=== PATIENT | female | born 1990 | race Caucasian/White ===

== ENCOUNTER 2025-09-18 02:28 | Emergency (ER) | payer OTHER ==
[2025-09-18 02:48] VITALS: TEMP 97.6; O2SAT 100
[2025-09-18] MEDS ORDERED: Ocuflox OPHTHALMIC 5 ML OP ONE (03:12)
--- NOTE | 2025-09-18 03:21 | ERPHSYRPT ---
- History of Present Illness Time Seen by Provider: 09/18/25 03:15 Source: patient Exam Limitations: no limitations Patient Subjective Stated Complaint: "I went to the clinic in [place] yesterday evening but then had to go to work, I work over in [place] and they sent some ear drops into the pharmacy for me for a double ear infection. I wasn't able to sisal picker my prescription yet but when I got home from work, I laid down and heard a loud pop and now I can't hear anything". Triage Nursing Assessment: Pt presents to ER with complaints of difficulty hearing out of right ear. Was diagnosed with bilateral ear infection on 09/17/25 at [facility] and prescribed some Arnold/Doxy drops. Pt is concerned due to laying down and hearing a loud pop and now is unable to hear out of her right ear. Right ear appears severely inflamed and swollen on external ear canal. There is some yellow/brown/transparent drainage coming from right ear. Pt rates pain 8/10 scale. Pt's left ear appears slightly red but no obvious swelling noted. Pt denies injury. Respirations are easy and unlabored. Skin is pink, warm, and dry. Denies any further complaints at this time. Physician History: 34-year-old female BMI of 56, history of hypertension presents to our ED for evaluation of right ear pain. Patient states she went to a clinic in [place] yesterday. Patient was diagnosed with otitis externa. Patient was prescribed eardrops for double ear infection. Patient did not sisal picker her eardrops. Patient states she heard a loud "pop" in her right ear. Hearing is muffled. Patient became concerned for a ruptured eardrum and came to our ED. No trauma. No fever. Patient rates her pain 8 out of 10. However patient declined pain medication from our ED. Patient has Sneads at home which she uses for her chronic back pain. She denies dizziness. Patient voices no other complaints or concerns at this time. Portions of this note were created with voice recognition technology. There may be grammatical, spelling, punctuation or sound alike errors Timing/Duration: yesterday Severity: moderate Modifying Factors: Improves With: nothing Associated Symptoms: other (Decreased hearing involve the ear) Allergies/Adverse Reactions: Penicillins Allergy (Intermediate, Verified 09/18/25 02:38) Hives Home Medications: Allopurinol 100 mg [Zyloprim 100 mg] 100 mg PO DAILY 09/18/25 [History] Bimekizumab-Bkzx [Bimzelx Autoinjector] 1 dose SQ Q14D 09/18/25 [History] Doxycycline Hyclate 100 mg [Vibramycin 100 MG] 100 mg PO DAILY 09/18/25 [History] Hydrochlorothiazide 25 mg [hydroDIURIL 25 MG] 12.5 mg PO DAILY 09/18/25 [History] Hydrocodone/Acetaminophen [Hydrocodone-Acetamin 5-325 mg] 1 each PO BID PRN 09/18/25 [History] Lisdexamfetamine Dimesylate [Vyvanse] 50 mg PO DAILY 09/18/25 [History] Losartan Potassium 50 mg [Cozaar 50 MG] 100 mg PO DAILY 09/18/25 [History] Metoprolol Tartrate 50 mg [Lopressor 50 MG] 100 mg PO DAILY 09/18/25 [History] Hx Influenza Vaccination/Date Given: Yes Hx Pneumococcal Vaccination/Date Given: No Travel Risk - International Travel Have you traveled outside of the country in past 3 weeks: No - Emerging Infectious Disease Are you exhibiting symptoms associated with any current EIDs: No - Review of Systems All Other Systems: Reviewed and Negative - Past Medical History Pertinent Past Medical History: Yes Neurological History: No Pertinent History ENT History: No Pertinent History Cardiac History: Hypertension Respiratory History: No Pertinent History Endocrine Medical History: No Pertinent History Musculoskeletal History: No Pertinent History GI Medical History: No Pertinent History History: No Pertinent History Psycho-Social History: No Pertinent History Female Reproductive Disorders: No Pertinent History Other Medical History: H.S., PCOS, ELEVATED URIC ACID, EAR INFECTION, HERNIATED DISKS - Past Surgical History Past Surgical History: Yes Neuro Surgical History: No Pertinent History Cardiac: No Pertinent History Respiratory: No Pertinent History Gastrointestinal: No Pertinent History Genitourinary: No Pertinent History Musculoskeletal: No Pertinent History Female Surgical History: Tubal Ligation - Female History Hx Last Menstrual Period: N/A Hx Now: No - Social History Smoking Status: Never smoker Exposure to second hand smoke: No Drug Use: none - Social Determinants of Health Will the patient participate in the screening: Yes Do you worry about a steady place to live?: No Do you have any problems with any of the following?: No known problems In the past 12 months,have you had to go without utilities?: No Transportation Issues: No Has anyone in your support network made you feel unsafe?: No Have you or anyone in your house had to go w/o enough food: No - Nursing Vital Signs Nursing Vital Signs: Initial Vital Signs Pulse Rate 78 09/18/25 02:38 Respiratory Rate 18 09/18/25 02:38 Blood Pressure 169/99 09/18/25 02:38 O2 Sat by Pulse Oximetry 98 09/18/25 02:38 Pain Scale Pain Intensity 8 - Physical Exam General Appearance: no apparent distress, alert Eye Exam: PERRL/EOMI, eyes nml inspection Ears, Nose, Throat Exam: normal ENT inspection, TMs normal, pharynx normal, moist mucous membranes, other (Right ear otitis externa. There is swelling of the external canal and the eardrum is barely visible. No bleeding. No mastoid tenderness.) Neck Exam: normal inspection, full range of motion Respiratory Exam: normal breath sounds, airway intact, No respiratory distress Back Exam: normal inspection, normal range of motion, No CVA tenderness, No vertebral tenderness Extremity Exam: normal inspection, normal range of motion, pelvis stable Neurologic Exam: alert, oriented x 3, cooperative, normal mood/affect, sensation nml, No motor deficits Skin Exam: normal color, warm, dry, No rash Lymphatic Exam: No adenopathy SpO2 Interpretation: normal SpO2: 100 O2 Delivery: Room Air - Course Nursing assessment & vital signs reviewed: Yes Ordered Tests: Medication Summary Discontinued Medications Generic Name Dose Route Start Last Admin Trade Name Demetrius PRN Reason Stop Dose Admin Ofloxacin 5 ml 09/18/25 03:09 09/18/25 03:26 Ofloxacin 5 Ml Ear Drops OT 09/18/25 03:10 Not Given STAT ONE Ofloxacin Confirm 09/18/25 03:12 Ofloxacin 0.3% Opth 5 Ml Eye Drops Administered 09/18/25 03:13 Dose 5 ml OP .STK-MED ONE Ofloxacin 5 ml 09/18/25 03:22 09/18/25 03:25 Ofloxacin 0.3% Opth 5 Ml Eye Drops OP 09/18/25 03:23 5 ml ONCE STA Administration - Progress Progress: improved Progress Note: 09/18/25 03:41 "I went to the clinic in [place] yesterday evening but then had to go to work, I work over in [place] and they sent some ear drops into the pharmacy for me for a double ear infection. I wasn't able to sisal picker my prescription yet but when I got home from work, I laid down and heard a loud pop and now hearing is muffled physical exam reveals an otitis externa with narrowing of the external canal. The TM is barely visible with otoscopy. We applied a right ear wick. Ofloxacin otic antibiotic applied. We did not have anything with a steroid such as dexamethasone. Dexamethasone is no longer on formulary here at [facility]. However patient has an eardrop with steroid which was prescribed to her by her prior provider. Patient was given instructions on medication application. Patient understands that the ear wick should fall out spontaneously when the swelling goes down. If not she has to return to our ED or her provider for removal. Patient understands that if hearing does not imp rove she has to follow-up with ENT. Patient states she is ready for discharge. She voices no other complaints or concerns at this time. History obtained from patient We intended to administer an eardrop antibiotic with a steroid however we do not have one on formulary Differential diagnosis includes otitis externa, mastoiditis, trauma Portions of this note were created with voice recognition technology. There may be grammatical, spelling, punctuation or sound alike errors Complexity of problems addressed is moderate acute complicated. No critical care time. Complexity of data reviewed and analyzed is none. No specialized testing ordered. Diagnosis made based on history and physical exam. Risk of complication and or risk of morbidity/mortality of patient management is moderate. Patient was discharged home with the ofloxacin. Vital stable. Time spent to discharge patient is approximately 20 minutes. Plan of care established via shared decision making. No social determinants of health present to impede follow-up. Portions of this note were created with voice recognition technology. There may be grammatical, spelling, punctuation or sound alike errors". Counseled pt/family regarding: diagnosis, need for follow-up - Departure Departure Disposition: Home Clinical Impression: Otitis externa of right ear Condition: Stable Critical Care Time: No Referrals: VASH,CYNTHIA M., [employer] [Primary Care Provider, UNKNOWN] - Follow up/PCP as directed Additional Instructions: Discharge/Care Plan PRIYA RIGGS was seen on 09/18/25 in the Emergency Room. The patient was counseled regarding Diagnosis,Lab results, Imaging studies, need for follow up and when to return to the Emergency Room. Prescriptions given: Discharge Note I have spoken with the patient and/or caregivers. I have explained the patient's condition, diagnosis and treatment plan based on the information available to me at this time. I have answered the patient's and/or caregiver's questions and addressed any concerns. The patient and/or caregivers have as good understanding of the patient's diagnosis, condition and treatment plan as can be expected at this point. The vital signs have been stable. The patient's condition is stable and appropriate for discharge from the emergency department. The patient will pursue further outpatient evaluation with the primary care physician or other designated or consulting physician as outlined in the discharge instructions. The patient and/or caregivers are agreeable to this plan of care and follow-up instructions have been explained in detail. The patient and/or caregivers have received these instruction. The patient/and or caregivers are aware that any significant change in condition or worsening of symptoms should prompt an immediate return to this or the closest emergency department or call 911.
[2025-09-18] MEDS: Ocuflox OPHTHALMIC 5 ML OP STA (03:25)
[2025-09-18] MEDS: Floxin Otic 5 ML OT ONE (03:26)
[2025-09-18 03:30] VITALS: BP 151/91; PULSE 70; RESP 18
== END 2025-09-18 03:50 | disposition home or self-care (01) ==
LOC: ED 02:28
DX: H60.91 Unspecified otitis externa, right ear (principal); H92.01 Otalgia, right ear; I10 Essential (primary) hypertension; Z79.891 Long term (current) use of opiate analgesic; Z79.899 Other long term (current) drug therapy